=== PATIENT | male | born 1970 | race Caucasian/White ===

== ENCOUNTER 2016-06-12 19:57 | Emergency (ER) | payer BC ==
--- NOTE | 2016-06-12 20:35 | Emergency Department Record ---
History of Present Illness - General Stated Complaint: LACERATION RIGHT MIDDLE FINGER Time Seen by Provider: 06/12/16 20:29 Source: Patient Mode of Arrival: Ambulatory Limitations: No limitations - History of Present Illness Initial Comments: 45 yo male presents to ED with a CC of a tuft laceration to the right middle digit while working with a sharp knife at home several hours ago. Patient reports applying a bandage to the wound, but during a dressing change later tonight, the wound continued to bleed prompting visit to the ED. Patient denies other injury, and denies health problems at his baseline. Patient reports that his tetanus is not UTD. Complaint: Injury to:: Right, Finger Onset/Timin -: Hour(s) Other Extremity Injury: Fingers: Right Other Injuries: None Handedness: Right Place: Home Improves With: None Worsens With: None Context: Injury Associated Symptoms: Denies other symptoms Treatments Prior to Arrival: Bandage - Related Data Home Medications Medication Instructions Recorded Confirmed Last Taken No Home Med [NO HOME MEDS] 03/09/15 03/09/15 Unknown Allergies Allergy/AdvReac Type Severity Reaction Status Date / Time No Known Drug Allergies Allergy Verified 03/09/15 16:39 Review of Systems Constitutional: Denies: Chills, Fever, Malaise, Night sweats Eyes: Denies: Eye discharge, Eye pain ENT: Denies: Congestion, Ear pain, Epistaxis Respiratory: Denies: Cough, Dyspnea Cardiovascular: Denies: Chest pain, Dyspnea on exertion Endocrine: Denies: Fatigue, Heat or cold intolerance Gastrointestinal: Denies: Abdominal pain, Nausea, Vomiting Genitourinary: Denies: Incontinence, Retention Musculoskeletal: Denies: Arthralgia, Back pain, Gout, Joint swelling Skin: Denies: Bruising, Change in color, Change in hair/nails Neurological: Denies: Abnormal gait, Confusion, Headache, Seizure Psychiatric: Denies: Anxiety Hematological/Lymphatic: Denies: Anemia, Blood Clots Past Medical History - SOCIAL HISTORY Smoking Status: Never smoker - RESPIRATORY Hx Respiratory Disorders: No - CARDIOVASCULAR Hx Cardio Disorders: No - NEURO Hx Neuro Disorders: No - GI Hx GI Disorders: No - Hx Genitourinary Disorders: No - ENDOCRINE Hx Endocrine Disorders: No - MUSCULOSKELETAL Hx Musculoskeletal Disorders: No - PSYCH Hx Psych Problems: No - HEMATOLOGY/ONCOLOGY Hx Hematology/Oncology Disorders: No Physical Exam - General General Appearance: Alert, Oriented x3, Cooperative, No acute distress Limitations: No limitations - Head Head exam: Atraumatic, Normocephalic, Normal inspection Head exam detail: negative: Abrasion, Contusion, Vale's sign, General tenderness, Hematoma, Laceration - Eye Eye exam: Normal appearance. negative: Conjunctival injection, Periorbital swelling, Periorbital tenderness, Scleral icterus - ENT Ear exam: negative: Auricular hematoma, Auricular trauma Nasal Exam: negative: Active bleeding, Discharge, Dried blood, Foreign body Mouth exam: negative: Drooling, Laceration, Muffled voice, Tongue elevation - Neck Neck exam: Normal inspection. negative: Meningismus, Tenderness - Respiratory Respiratory exam: Normal lung sounds bilaterally. negative: Rales, Respiratory distress, Rhonchi, Stridor - Cardiovascular Cardiovascular Exam: Regular rate, Normal rhythm, Normal heart sounds - GI/Abdominal GI/Abdominal exam: Soft. negative: Rebound, Rigid, Tenderness - Rectal Rectal exam: Deferred - exam: Deferred - Extremities Extremities exam: negative: Calf tenderness, Pedal edema, Tenderness - Back Back exam: Denies: CVA tenderness (R), CVA tenderness (L) - Neurological Neurological exam: Alert, Normal gait, Oriented X3 - Psychiatric Psychiatric exam: Normal affect, Normal mood - Skin Skin exam: Normal color, Other (0.5 cm area of dermis removed from the finger tuft of the right middle digit.). negative: Abrasion Type of lesion: negative: abrasion Course - Reevaluation(s) Reevaluation #1: 06/12/16 20:33 Wound was visualized, Gelfoam applied for hemostatic control followed by dressing change. Given the mechanism of injury (sliced with sharp knife), radiographs do not appear indicated as there was no underlying injury to the digit. Laceration cannot be closed due to tissue loss. Tetanus was updated prior to departure, appears stable for discharge at this time. Disposition Disposition: Discharge Clinical Impression: Finger laceration Qualifiers: Encounter type: initial encounter Qualified Code(s): S61.219A - Laceration without foreign body of unspecified finger without damage to nail, initial encounter Disposition: Home, Self-Care Condition: (2) Stable Instructions: Finger Laceration (ED) Additional Instructions: Return to ED if your symptoms worsen or if you have any concerns. Dressing change in 2 days, leave gelfoam in place when the dressing is changed. Dressing changes daily thereafter. Follow-up with your family doctor in 3-5 days as directed. Time of Disposition: 20:37
[2016-06-12] MEDS: Diph,Pert(Acell),Tet Vac 0.5 ML SYR IM ONE (20:47)
== END 2016-06-12 20:51 | disposition home or self-care (01) ==
LOC: ER 19:57
DX: S61.212A Laceration without foreign body of right middle finger without damage to nail, initial encounter (principal); W26.0XXA Contact with knife, initial encounter; Y92.009 Unspecified place in unspecified non-institutional (private) residence as the place of occurrence of the external cause
CPT/HCPCS: 90715; 96372; 99283

== ENCOUNTER → 2016-06-19 | Emergency (ER) | payer BC ==
[2016-06-19 07:48] LABS: BASO % 0.7 % (0-6); EOS % 3.2 % (0-6); GRAN % 56.2 % (47-80); HEMATOCRIT 43.2 % (42.0-52.0); HEMOGLOBIN 14.2 gm/dl (14.0-18.0); LYMPH % 29.1 % (16-45); MEAN CORPUSCULAR HEMOGLOBIN 28.9 pg (27-33); MEAN CORPUSCULAR HGB CONC 32.9 g/dl (32-36); MEAN PLATELET VOLUME 9.9 fl (7.4-10.4); MONO % 10.8 % (0-9); PLATELET COUNT 346 K/uL (130-400); RED BLOOD COUNT 4.91 M/uL (4.40-5.70); WHITE BLOOD COUNT W/O DIFF 7.5 K/uL (4.2-12.2)
[2016-06-19 08:31] LABS: ALB/GLOB RATIO 1.5 (1.1-1.8); ALBUMIN 4.4 gm/dL (3.5-5.0); ALKALINE PHOSPHATASE 43 U/L (38-126); ALT/SGPT 63 U/L (21-72); ANION GAP 10.7 (7-16); AST/SGOT 55 U/L (17-59); BILIRUBIN,TOTAL 0.59 mg/dL (0.2-1.3); BLOOD UREA NITROGEN 16 mg/dL (9-20); CARBON DIOXIDE 25.3 mmol/L (22-30); EST GLOMERULAR FILTRATION RATE > 60 ml/min; GLUCOSE,RANDOM 87 mg/dL (70-110); TOTAL PROTEIN 7.4 gm/dL (6.3-8.2)
== END | disposition home or self-care (01) ==
LOC: LAB 05:19
DX: Z79.899 Other long term (current) drug therapy (principal); Z51.81 Encounter for therapeutic drug level monitoring; K76.0 Fatty (change of) liver, not elsewhere classified
CPT/HCPCS: 80053; 84403; 85025